=== PATIENT | female | born 1960 | race Caucasian/White ===

== ENCOUNTER 2018-10-09 09:30 | Outpatient (CLI) | payer MEDICAID, MEDICARE, OTHER | END 2018-10-09 23:59 | disposition home or self-care (01) | LOC: RAD 09:30 | PROVIDERS: ATTEND General Practice | DX: M71.021 Abscess of bursa, right elbow (principal); Z88.5 Allergy status to narcotic agent; Z88.8 Allergy status to other drugs, medicaments and biological substances | CPT/HCPCS: 78315; A9503 ==

== ENCOUNTER 2019-01-06 05:31 | Inpatient (IN) | payer MEDICARE, MEDICAID ==
[2019-01-04 15:37] LABS: BASOPHILS % (AUTO) 0.3 % (0-1); EOSINOPHILS # (AUTO) 0.2 X10'3 (0-0.9); EOSINOPHILS % (AUTO) 2.3 % (0-6); LYMPHOCYTES # (AUTO) 2.2 X10'3 (1.1-4.8); LYMPHOCYTES % (AUTO) 34.3 % (21-51); MEAN CORPUSCULAR HEMOGLOBIN 30.3 PG (27.0-31.0); MEAN CORPUSCULAR HGB CONC 33.5 g/dL (33.0-36.5); MEAN CORPUSCULAR VOLUME 90.4 FL (78-98); MEAN PLATELET VOLUME 7.9 FL (7.4-10.4); MONOCYTES # (AUTO) 0.6 X10'3 (0-0.9); MONOCYTES % (AUTO) 9.7 % (2-12); NEUTROPHILS # (AUTO) 3.5 X10'3 (1.8-7.7); NEUTROPHILS % (AUTO) 53.4 % (42-75); PRE OP HEMATOCRIT 34.9 % (35.0-45.0); PRE OP HEMOGLOBIN 11.7 g/dL (12.0-16.0); PRE OP PLATELET COUNT 352 X10'3 (140-440); RED BLOOD COUNT 3.86 X10'6 (4.20-5.60); RED CELL DISTRIBUTION WIDTH 14.8 % (11.5-14.5)
[2019-01-04 15:48] LABS: PRE OP PROTIME 10.7 SECONDS (9.0-12.0)
[2019-01-06] VITALS (21 sets, daily range): BP systolic 100–128; BP diastolic 51–77
[~2019-01-06] VITALS: Ht 167.6 cm; Wt 45.4 kg
[~2019-01-06 05:31] MED LIST: AMLO5TAB16 PO; ATOR-2 PO; BACL10TA2 PO; BISA10SU60 RC; IBUP-1984 PO; LORA10TA7 PO; MAGN400C PO; MESSAGE TO NURSING PO ONE; METH113C20 TOP; MIRT15TA PO; MYLANTA SUSPENSION PO; OMEP40CA13 PO; TRAM50TA2 PO; VANCOMYCIN INJ 1000 MG in NORMAL SALINE 250ml IV.SOLN IV ONE; [UNRECOGNIZED DRUG - OTHER] PO; cefazolin/dext.iso 2gm/100ml 100 ML IV ONE; celeCOXIB 100mg capsule PO ONE; famotidine 20mg tablet PO ONE; gabapentin 300mg capsule PO ONE; metoclopramide 5 mg/ml inj IV ONE; tranexamic acid inj. 1,000 MG in normal saline 100 ML IV ONE
[2019-01-06] MEDS ORDERED: LIDOcaine 1% (10mg/ml) 2ml vial ONE (06:08)
[2019-01-06] MEDS: ringers solution, lacted 1,000 ML IV SCH ×2 (06:17→12:49)
[2019-01-06] MEDS ORDERED: cloNIDine hcl/PF 100mcg/ml inj ONE (06:22)
[2019-01-06] MEDS ORDERED: ROPIVAcaine 0.5% (5mg/ml) 30ml vial ONE ×2 (06:22→09:15)
[2019-01-06] MEDS ORDERED: vancomycin 1,000mg inj ONE (06:22)
[2019-01-06] MEDS ORDERED: ketorolac trometh. 30mg/ml inj. ONE (06:22)
[2019-01-06] MEDS ORDERED: epiNEPHrine 1 mg/ml inj ONE (06:22)
[2019-01-06] MEDS ORDERED: diphenhydrAMINE 25mg capsule PO PRN ×2 (06:35)
[2019-01-06] MEDS ORDERED: oxyCODONE/APAP 10/325mg tablet PO PRN ×2 (06:35)
[2019-01-06] MEDS ORDERED: HYDROmorphone 1 mg/ml syringe IV PRN (06:35)
[2019-01-06] MEDS ORDERED: baclofen 10mg tablet PO PRN (06:35)
[2019-01-06] MEDS ORDERED: magnesium hydroxide 30ml (MOM) UD suspension PO PRN (06:35)
[2019-01-06] MEDS ORDERED: bisacodyl 10mg suppository rectal RC PRN ×2 (06:35)
[2019-01-06] MEDS ORDERED: HYDROmorphone inj. 0.5 MG/0.5 ML DISP.SYRIN IV PRN (06:35)
[2019-01-06] MEDS ORDERED: [UNRECOGNIZED DRUG - OTHER] MM PRN (06:35)
[2019-01-06] MEDS ORDERED: ondansetron/PF 4mg/2ml inj IV PRN ×2 (06:35→08:00)
[2019-01-06] MEDS ORDERED: acetaminophen 325mg tablet PO PRN (06:35)
[2019-01-06] MEDS ORDERED: tetracaine 1% (10mg/ml) pres. free inj. ONE (07:04)
[2019-01-06] MEDS ORDERED: MIDAZolam 1mg/ml 10ml vial ONE (07:07)
[2019-01-06] MEDS ORDERED: fentaNYL/PF 50MCG/1 ML 2ML syringe ONE (07:07)
[2019-01-06 07:20] LABS: ALBUMIN 3.2 G/DL (3.4-5.0); ALBUMIN/GLOBULIN RATIO 0.7 (1.1-1.5); ALKALINE PHOSPHATASE 94 IU/L (46-116); BLOOD UREA NITROGEN 18 MG/DL (7-18); BUN/CREATININE RATIO 23.1 (6.6-38.0); CALCIUM 9.5 MG/DL (8.5-10.1); CHLORIDE 103 MMOL/L (99-107); CREATININE 0.78 MG/DL (0.40-0.90); PRE OP ALT 15 U/L (30-65); PRE OP ANION GAP 6 (8-16); PRE OP AST 19 U/L (10-37); PRE OP BILIRUB, TOTAL 0.3 MG/DL (0.0-1.0); PRE OP GLUCOSE 89 MG/DL (70-104); PRE OP POTASSIUM 4.2 MMOL/L (3.4-5.1); PRE OP SODIUM 139 MMOL/L (135-145); TOTAL CARBON DIOXIDE 30.1 MMOL/L (24-32); TOTAL PROTEIN 7.7 G/DL (6.4-8.2); eGFR 76 ML/MIN
[2019-01-06] MEDS ORDERED: ringers solution, lacted 1,000 ML IV SCH (07:58)
[2019-01-06] MEDS ORDERED: ROPIVAcaine 0.2%/PF PUMP/bolus 550 ML ADDCANAL SCH (07:58)
[2019-01-06] MEDS ORDERED: ceFAZolin 1GM/D5W- ADD-VANTAGE 50 ML IV SCH (08:00)
[2019-01-06] MEDS: amLODIPine 5mg tablet PO SCH (08:00)
[2019-01-06] MEDS: ascorbic acid 500mg tablet PO SCH ×2 (08:00→20:16)
[2019-01-06] MEDS: enoxaparin 40mg/0.4ml syringe SQ SCH (08:00)
[2019-01-06] MEDS ORDERED: proCHLORperazine 10 MG/2 ml inj IV PRN (08:00)
[2019-01-06] MEDS ORDERED: meperidine/PF 25mg/ml syringe IV PRN ×3 (08:00)
[2019-01-06] MEDS: gabapentin 300mg capsule PO SCH ×3 (08:00→20:16)
[2019-01-06] MEDS: multivitamins, therapeutics tablet PO SCH (08:00)
[2019-01-06] MEDS ORDERED: morphine 4 MG/ML inj SYRINge IV PRN ×2 (08:00)
[2019-01-06] MEDS: loratadine 10mg tablet PO SCH (08:00)
[2019-01-06] MEDS ORDERED: ROPIVAcaine 0.2% (10 MG/5 ML) BOLUS INJECTION ADDCANAL PRN (08:00)
[2019-01-06] MEDS ORDERED: vancomycin/NS 1 GM ADD-VANTAGE 250 ML IV SCH ×2 (08:00→11:54)
--- NOTE | 2019-01-06 10:00 | NUR ---
Received from OR via BED , accompanied by Anesthesiologist DR TIAN and report given by Anesthesiolgist. PATIENT WAKING UP, DENIES PAIN, V/S WNL, NEUROVASCULAR CHECKS INTACT, 18G PIV LUE , DRESSING TO LEFT KNEE CDI W/ COLD POWDER PACK AND W/ SCD ON. F/C DRAINING CLEAR YELLOW URINE. SENSATION T-10.
--- NOTE | 2019-01-06 11:10 | NUR ---
PATIENT A&OX4, DENIES PAIN, V/S WNL, NEUROVASCULAR CHECKS INTACT, 18G PIV LUE , DRESSING TO LEFT KNEE CDI W/ COLD POWDER PACK AND W/ SCD ON. F/C DRAINING CLEAR YELLOW URINE. SENSATION T-11. PATIENT TAKEN TO ORTHO WITH ALL BELONGINGS AND HOOKED UP TO MONITORS IN ROOM AND REPORT GIVEN TO FOOD HANDLER WHO HAS TAKEN OVER PATIENT CARE.
[2019-01-06] MEDS ORDERED: mag hydrox/Alum hydrox/simeth 30ml oral suspension PO PRN (11:30)
[2019-01-06] MEDS: ceFAZolin 1GM/D5W- ADD-VANTAGE 50 ML IV SCH ×2 (12:00→20:28)
[2019-01-06] MEDS: potassium cl 20mEq in 1/2 NS 1,000 ML IV SCH ×3 (12:44→20:23)
[2019-01-06] MEDS: TRANEXAMIC ACID IV ONE ×2 (14:20→19:02)
[2019-01-06] MEDS: NORMAL SALINE IV ONE ×2 (14:20→19:02)
[2019-01-06] MEDS: magnesium oxide 400mg tablet PO SCH (16:00)
--- NOTE | 2019-01-06 18:25 | NUR ---
Problems reprioritized. Patient report given, questions answered & plan of care reviewed with Charlotte DANIEL.
[2019-01-06] MEDS: sennosides 8.6mg tablet PO SCH (21:00)
[2019-01-06] MEDS: mirtazapine 15mg tablet PO SCH (21:46)
[2019-01-06] MEDS: traMADol 50MG tablet PO PRN (21:50)
[2019-01-07 02:00] VITALS: BP 136/68
[2019-01-07 02:50] VITALS: BP 136/68
[2019-01-07 05:18] LABS: BASOPHILS % (AUTO) 0.6 % (0-1); EOSINOPHILS # (AUTO) 0.2 X10'3 (0-0.9); EOSINOPHILS % (AUTO) 2.2 % (0-6); HEMATOCRIT 27.3 % (35.0-45.0); HEMOGLOBIN 9.4 g/dl (12.0-16.0); LYMPHOCYTES # (AUTO) 1.3 X10'3 (1.1-4.8); LYMPHOCYTES % (AUTO) 18.3 % (21-51); MEAN CORPUSCULAR HEMOGLOBIN 30.4 PG (27.0-31.0); MEAN CORPUSCULAR HGB CONC 34.5 g/dL (33.0-36.5); MEAN CORPUSCULAR VOLUME 88.2 FL (78-98); MEAN PLATELET VOLUME 7.7 FL (7.4-10.4); MONOCYTES % (AUTO) 13.8 % (2-12); NEUTROPHILS # (AUTO) 4.8 X10'3 (1.8-7.7); NEUTROPHILS % (AUTO) 65.1 % (42-75); PLATELET COUNT 255 X10'3 (140-440); RED CELL DISTRIBUTION WIDTH 14.4 % (11.5-14.5); WHITE BLOOD COUNT 7.3 X10'3 (4.5-11.0)
[2019-01-07 05:33] LABS: ANION GAP 8 (8-16); CHLORIDE 104 MMOL/L (99-107); POTASSIUM 4.4 MMOL/L (3.5-5.1); SODIUM 138 MMOL/L (135-145)
[2019-01-07] MEDS: traMADol 50MG tablet PO PRN ×4 (05:51→21:58)
[2019-01-07] MEDS: potassium cl 20mEq in 1/2 NS 1,000 ML IV SCH (05:53)
[2019-01-07 06:00] VITALS: BP 120/65
[2019-01-07] MEDS: amLODIPine 5mg tablet PO SCH (07:48)
[2019-01-07] MEDS: loratadine 10mg tablet PO SCH (07:48)
[2019-01-07] MEDS: magnesium oxide 400mg tablet PO SCH (07:48)
[2019-01-07] MEDS: ascorbic acid 500mg tablet PO SCH ×2 (07:48→20:11)
[2019-01-07] MEDS: gabapentin 300mg capsule PO SCH ×3 (07:48→20:10)
[2019-01-07] MEDS: multivitamins, therapeutics tablet PO SCH (07:48)
[2019-01-07] MEDS: pantoprazole 40mg Tablet.DR PO SCH (07:48)
[2019-01-07] MEDS: enoxaparin 40mg/0.4ml syringe SQ SCH (07:49)
[2019-01-07 11:00] VITALS: BP 129/79
[2019-01-07] MEDS: atorvastatin 20mg tablet PO SCH ×2 (11:06→20:11)
--- NOTE | 2019-01-07 13:22 | NUR ---
BMI trigger: BMI 16.1. Pt admit s/p removal of L TKA antibiotic spacer from prior infection. PO 75% avg first meals refusing milks. Pt seen by KIM and reports good appetite at home w/ no wt loss hx. Pt visibly appears well-nourished and likely maintains small stature. Pt has no edema/wounds, no significant weakness, and is meeting healing needs w/ current PO diet. LBM 01/05 receiving senna. Pt does report disliking milk to drink, cranberries, and corn; dietary notified. No nutrition concerns at this time. Will continue to monitor. Rec: 1. continue regular diet 2. honor pt food preferences; see above 3. routine bowel care 4. weekly wts Addendum: 01/07/19 at [address] Amended: Links added.
[2019-01-07 15:00] VITALS: BP 110/65
[2019-01-07] MEDS: ibuprofen tablet 400 MG TABLET PO PRN (15:32)
--- NOTE | 2019-01-07 18:18 | NUR ---
Problems reprioritized. Patient report given, questions answered & plan of care reviewed with Rosenda Madden RN.
--- NOTE | 2019-01-07 18:30 | NUR ---
Patient in room ORTHO 4020. I have received report from FREDY Prado and had the opportunity to ask questions and assume patient care.
[2019-01-07] MEDS ORDERED: ROPIVAcaine 0.2%/PF PUMP/bolus 550 ML ADDCANAL SCH (20:04)
[2019-01-07] MEDS: mirtazapine 15mg tablet PO SCH (20:10)
[2019-01-07] MEDS: sennosides 8.6mg tablet PO SCH (20:11)
[2019-01-07 22:00] VITALS: BP 118/74
[2019-01-08] MEDS: traMADol 50MG tablet PO PRN ×3 (03:40→14:48)
--- NOTE | 2019-01-08 06:05 | NUR ---
Problems reprioritized. Patient report given, questions answered & plan of care reviewed with FREDY Hines.
[2019-01-08 06:19] VITALS: BP 131/76
[2019-01-08 06:23] LABS: BASOPHILS # (AUTO) 0.1 X10'3 (0-0.2); BASOPHILS % (AUTO) 0.8 % (0-1); EOSINOPHILS # (AUTO) 0.2 X10'3 (0-0.9); EOSINOPHILS % (AUTO) 2.2 % (0-6); HEMATOCRIT 24.4 % (35.0-45.0); HEMOGLOBIN 8.4 g/dl (12.0-16.0); LYMPHOCYTES # (AUTO) 1.5 X10'3 (1.1-4.8); LYMPHOCYTES % (AUTO) 20.1 % (21-51); MEAN CORPUSCULAR HEMOGLOBIN 30.4 PG (27.0-31.0); MEAN CORPUSCULAR HGB CONC 34.5 g/dL (33.0-36.5); MEAN CORPUSCULAR VOLUME 88.1 FL (78-98); MEAN PLATELET VOLUME 7.6 FL (7.4-10.4); MONOCYTES % (AUTO) 14.4 % (2-12); NEUTROPHILS # (AUTO) 4.5 X10'3 (1.8-7.7); NEUTROPHILS % (AUTO) 62.5 % (42-75); PLATELET COUNT 255 X10'3 (140-440); RED BLOOD COUNT 2.78 X10'6 (4.20-5.60); RED CELL DISTRIBUTION WIDTH 14.5 % (11.5-14.5); WHITE BLOOD COUNT 7.2 X10'3 (4.5-11.0)
[2019-01-08] MEDS: enoxaparin 40mg/0.4ml syringe SQ SCH (07:40)
[2019-01-08] MEDS: gabapentin 300mg capsule PO SCH ×2 (07:40→12:37)
[2019-01-08] MEDS: multivitamins, therapeutics tablet PO SCH (07:40)
[2019-01-08] MEDS: loratadine 10mg tablet PO SCH (07:40)
[2019-01-08] MEDS: amLODIPine 5mg tablet PO SCH (07:40)
[2019-01-08] MEDS: pantoprazole 40mg Tablet.DR PO SCH (07:40)
[2019-01-08] MEDS: ascorbic acid 500mg tablet PO SCH (07:40)
[2019-01-08] MEDS: magnesium oxide 400mg tablet PO SCH (07:40)
[2019-01-08] MEDS: ibuprofen tablet 400 MG TABLET PO PRN (14:49)
== END 2019-01-08 16:12 | DRG 940 ==
LOC: PAS 05:31 → PAS IN 06:33 → ORTHO 4S 11:00
PROVIDERS: ADMIT Orthopaedic Surgery; ATTEND Orthopaedic Surgery
PROC: 0SHD08Z Insertion of Spacer into Left Knee Joint, Open Approach (ICD-10-PCS; 2019-01-06)
PROC: 3E0T3BZ Introduction of Anesthetic Agent into Peripheral Nerves and Plexi, Percutaneous Approach (ICD-10-PCS; 2019-01-06)
PROC: 0SPD08Z Removal of Spacer from Left Knee Joint, Open Approach (ICD-10-PCS; principal; 2019-01-06 07:07)
DX: T84.54XD Infection and inflammatory reaction due to internal left knee prosthesis, subsequent encounter (principal); Z68.1 Body mass index [BMI] 19.9 or less, adult; D62 Acute posthemorrhagic anemia; Z89.522 Acquired absence of left knee; E78.5 Hyperlipidemia, unspecified; I10 Essential (primary) hypertension; Y83.1 Surgical operation with implant of artificial internal device as the cause of abnormal reaction of the patient, or of later complication, without mention of misadventure at the time of the procedure
CPT/HCPCS: 36415; 71046; 73560; 80051; 80053; 85025; 85610; 85730; 86885; 86900; 86901; 86920; 93005; 97110; 97112; 97116; 97161; 97530; A4215; A6449; A6454; A7000; A9272; C1713; C1758; C1776; G0378; J0171; J0690; J0735; J1170; J1650; J1885; J2001; J2250; J2765; J2795; J3010; J3370; J3480; J7120; J7999

== ENCOUNTER 2022-03-29 08:47 | Emergency (ER) | payer MEDICARE, MEDICAID ==
[~2022-03-29] VITALS: Ht 167.6 cm; Wt 68.2 kg
[~2022-03-29 08:47] MED LIST changes: -AMLO5TAB16 PO; -ATOR-2 PO; -BACL10TA2 PO; -BISA10SU60 RC; +DICL50TA6 PO; -IBUP-1984 PO; +LEVO50TA8 PO; -LORA10TA7 PO; -MAGN400C PO; -MESSAGE TO NURSING PO ONE; -METH113C20 TOP; -MIRT15TA PO; -MYLANTA SUSPENSION PO; -OMEP40CA13 PO; +PANT40TA54 PO; -TRAM50TA2 PO; -VANCOMYCIN INJ 1000 MG in NORMAL SALINE 250ml IV.SOLN IV ONE; -[UNRECOGNIZED DRUG - OTHER] PO; -cefazolin/dext.iso 2gm/100ml 100 ML IV ONE; -celeCOXIB 100mg capsule PO ONE; -famotidine 20mg tablet PO ONE; -gabapentin 300mg capsule PO ONE; -metoclopramide 5 mg/ml inj IV ONE; -tranexamic acid inj. 1,000 MG in normal saline 100 ML IV ONE
[2022-03-29] MEDS ORDERED: morphine IR (immed. release) 30mg tablet PO ONE (10:20)
[2022-03-29 11:00] VITALS: BP 133/73
== END 2022-03-29 12:37 | disposition home or self-care (01) ==
LOC: ER 08:48
DX: M25.562 Pain in left knee (principal); G89.29 Other chronic pain; Z88.5 Allergy status to narcotic agent
CPT/HCPCS: 73560; 99283

== ENCOUNTER 2022-10-18 10:31 | Emergency (ER) | payer MEDICARE, MEDICAID ==
[~2022-10-18] VITALS: Ht 157.5 cm; Wt 70.0 kg
[2022-10-18 10:37] VITALS: BP 154/89; PULSE 90; RESP 18; TEMP 97.8; O2SAT 100
== END 2022-10-18 15:11 | disposition home or self-care (01) ==
LOC: ER 10:32
DX: M54.50 Low back pain, unspecified (principal); Z88.5 Allergy status to narcotic agent; Z79.899 Other long term (current) drug therapy; W19.XXXA Unspecified fall, initial encounter; Y93.89 Activity, other specified; Y92.89 Other specified places as the place of occurrence of the external cause; Y99.8 Other external cause status
CPT/HCPCS: 72100; 99283